=== PATIENT | male | born 1990 | race Caucasian/White ===

== ENCOUNTER 2019-06-06 09:05 | Emergency (ER) | payer BC, OTHER ==
[2019-06-06] MEDS ORDERED: Ketorolac Tromethamine 30 MG/ML VIAL ONE (09:37)
[2019-06-06 09:40] LABS: #Basophils 0.1 thou/uL (0.0-0.2); #Eosinphils 0.1 thou/uL (0.0-0.7); #Lymphocytes 1.1 thou/uL (1.20-3.40); #Monocytes 0.4 thou/uL (0.11-0.59); #Neutrophils 5.5 thou/uL (1.40-6.50); %Basophils 1.6 % (0.0-1.0); %Eosinophils 1.6 % (0.0-10.0); %Lymphocytes 15.5 % (21.0-51.0); %Monocytes 5.8 % (0.0-10.0); %Neutrophils 75.5 % (42.0-75.0); Hemoglobin 14.7 g/dL (14.0-18.0); Mean Corpuscular Hemoglobin 30.1 pg (27.0-31.0); Mean Corpuscular Volume 93.9 fL (78.0-98.0); Mean Platelet Volume 7.4 fL (7.4-10.4); Platelet Count 253 thou/uL (130-400); RBC Distribution Width 12.6 % (11.5-14.5); Red Blood Cell (RBC) Count 4.89 mill/uL (4.70-6.10); White Blood Cell (WBC) Count 7.3 thou/uL (4.8-10.8)
[2019-06-06 09:53] LABS: ALT (SGPT) 38 U/L (8-55); AST (SGOT) 21 U/L (5-34); Albumin 4.4 g/dL (3.5-5.0); Alkaline Phosphatase 69 U/L (40-110); Anion Gap 13 mmol/L (10-20); BUN (Urea Nitrogen) 17 mg/dL (8.9-20.6); Bilirubin, Total 0.5 mg/dL (0.2-1.2); Calc. Creatinine Clearance 0 mL/min (70-130); Calcium 9.2 mg/dL (7.8-10.44); Carbon Dioxide 22 mmol/L (22-29); Chloride 109 mmol/L (98-107); Estimated GFR-MDRD 88; Globulin 2.9 g/dL (2.4-3.5); Glucose 109 mg/dL (70-105); Potassium 4.3 mmol/L (3.5-5.1); Protein, Total 7.3 g/dL (6.0-8.3); Sodium 140 mmol/L (136-145)
[2019-06-06 10:32] LABS: Bilirubin Negative (Negative); Blood, Urine Large (Negative); Clarity Cloudy (Clear); Glucose, Urine (Dipstick) Negative (Negative); Leukocyte Negative (Negative); Nitrite Negative (Negative); Protein, Urine (Dipstick) 30 mg/dL (Neg-Trace)
[2019-06-06 10:40] LABS: Bacteria/HPF 1+ HPF (None Seen); RBC/HPF Greater than 50 HPF (0-3); Squamous Epithelial 0-3 HPF (0-3); WBC/HPF 0-3 HPF (0-3)
--- NOTE | 2019-06-06 15:19 | CT ---
CT ABDOMEN AND PELVIS WITHOUT CONTRAST: DATE: 06/06/2019. FINDINGS: The major finding on this study is a 5 mm proximal right ureteral calculus at the L3 level that cause s mild right hydronephrosis. Several retained stones are seen in the right kidney. None are seen in the left. The lung bases are clear. The liver, pancreas, and aorta were unremarkable in appearance. The splee n is borderline in size at 14.7 cm in length. There has been a prior cholecystectomy. The bowel shows no dilation, wall thickening, or inflammatory change around it. The appendix appears normal. No free air or free fluid was noted. Some mild diverticulosis of the sigmoid colon was not ed. CT of the pelvis shows no mass, fluid, or inflammatory change. IMPRESSION: 1. A 5 mm proximal right ureteral calculus at the L3 level causing mild right hydronephrosis. 2. Nonobstructing calculi remaining present in the right kidney. Findings called to Dr. Santana at 0957 on 06/06/2019. CODE CR POS: HOME
== END 2019-06-06 10:50 | disposition home or self-care (01) ==
LOC: BURERS 09:05
DX: N13.2 Hydronephrosis with renal and ureteral calculous obstruction (principal); Z90.49 Acquired absence of other specified parts of digestive tract; Z79.82 Long term (current) use of aspirin
CPT/HCPCS: 74176; 80053; 81003; 81015; 85025; 87086; 96361; 96374; J1885